=== PATIENT | female | born 1990 | race Caucasian/White ===

== ENCOUNTER 2020-07-30 13:03 | Outpatient (CLI) | payer BC | END 2020-07-30 13:04 | disposition home or self-care (01) | LOC: CSHULT 13:03 | PROVIDERS: ATTEND Family Medicine | DX: E04.1 Nontoxic single thyroid nodule (principal) | CPT/HCPCS: 76536 ==

== ENCOUNTER 2022-11-13 09:05 | Outpatient (CLI) | payer BC | END 2022-11-13 09:06 | disposition home or self-care (01) | LOC: CSHULT 09:05 | PROVIDERS: ATTEND Nurse Practitioner Family | DX: E04.1 Nontoxic single thyroid nodule (principal); E04.2 Nontoxic multinodular goiter | CPT/HCPCS: 76536 ==

== ENCOUNTER 2023-12-06 12:00 | Outpatient (CLI) | payer BC | END 2023-12-06 13:00 | disposition home or self-care (01) | LOC: CSHRAD 12:00 | PROVIDERS: ATTEND Internal Medicine Rheumatology | DX: M46.1 Sacroiliitis, not elsewhere classified (principal); Z87.19 Personal history of other diseases of the digestive system | CPT/HCPCS: 72202 ==